=== PATIENT | female | born 1990 | race Caucasian/White ===

== ENCOUNTER 2020-07-01 08:40 | Outpatient (CLI) | payer BC | END 2020-07-01 08:41 | disposition home or self-care (01) | LOC: COV 08:40 | PROVIDERS: ATTEND Family Medicine | DX: Z20.828 Contact with and (suspected) exposure to other viral communicable diseases (principal) ==

== ENCOUNTER 2020-09-06 13:53 | Outpatient (CLI) | payer OTHER, MEDICAID | END 2020-09-06 13:54 | disposition home or self-care (01) | LOC: COV 13:53 | PROVIDERS: ATTEND Family Medicine | DX: Z20.828 Contact with and (suspected) exposure to other viral communicable diseases (principal) ==